=== PATIENT | male | born 1955 | race Caucasian/White ===

== ENCOUNTER 2024-01-16 06:22 | Day surgery (SDC) | payer OTHER, SELFPAY ==
[2024-01-16 08:31] LABS: Glucose - Point of Care 133 mg/dl (70-99)
== END 2024-01-16 10:22 | disposition home or self-care (01) ==
LOC: GI 06:22
PROVIDERS: ATTENDING PHYSICIAN Specialist
DX: Z12.11 Encounter for screening for malignant neoplasm of colon (principal); K63.5 Polyp of colon; K57.30 Diverticulosis of large intestine without perforation or abscess without bleeding; K56.2 Volvulus; K22.70 Barrett's esophagus without dysplasia; K31.7 Polyp of stomach and duodenum; D13.2 Benign neoplasm of duodenum; K31.89 Other diseases of stomach and duodenum; Z86.0101 Personal history of adenomatous and serrated colon polyps
CPT/HCPCS: 45385; 45380; 43239; 88305; 82962

== ENCOUNTER 2024-05-21 06:17 | Day surgery (SDC) | payer OTHER, SELFPAY ==
[2024-05-21 09:43] VITALS: BMI 32.1
[2024-05-21 09:44] VITALS: BMI 32.1
[2024-05-21 09:49] LABS: Glucose - Point of Care 186 mg/dl (70-99)
[2024-05-21 09:53] VITALS: BP 146/82
[2024-05-21 11:44] LABS: Glucose - Point of Care 168 mg/dl (70-99)
[2024-05-21 12:37] VITALS: BP 111/80
[2024-05-21 12:45] VITALS: BP 117/84
[2024-05-21 13:00] VITALS: BP 136/84
== END 2024-05-21 13:15 | disposition home or self-care (01) ==
LOC: GI 06:17
PROVIDERS: ATTENDING PHYSICIAN Internal Medicine Gastroenterology
DX: K22.70 Barrett's esophagus without dysplasia (principal); D13.2 Benign neoplasm of duodenum; K31.7 Polyp of stomach and duodenum; K31.89 Other diseases of stomach and duodenum
CPT/HCPCS: 43251; 88305; 82962